=== PATIENT | female | born 1945 | race Caucasian/White ===

== ENCOUNTER 2018-05-30 16:56 | Emergency (ER) | payer MEDICARE, OTHER, SELFPAY ==
[2018-05-30] VITALS (21 sets, daily range): BP systolic 127–154; BP diastolic 64–119; PULSE 86–117; RESP 13–25; TEMP 36.5–37.1; O2SAT 94–98
--- NOTE | 2018-05-30 17:27 | W.ED.GENAD ---
Discharge Plan Disposition Patient Disposition: HOME Condition: Improving Discharge Details Chief Complaint: GenMedical Clinical Impression: Lower leg pain, Choreiform movements Primary Care Provider: Joan Vail ED Provider: Igor Leija Home Meds and New Rx's Prescriptions: No Action sulfurzyme 1.8 gram PO BID RF: 0 calcium/magnsium 2 cap PO BID Qty: 30 RF: 1 mo-1-tsu-epa-fish oil-vit D3 [[place]-3 + Vitamin D3] 1 EACH capsule 3,900 ea PO DAILY RF: 0 lysine [L-Lysine] 500 MG capsule 1 cap PO PRN PRNRF: 0 red yeast rice 600 MG capsule 600 mg PO BID RF: 0 peppermint spirit 30 ML spirit 2 drp PO PRN PRNRF: 0 Discharge Instructions Additional Instructions: 1. Drink plenty of fluids. 2. Continue all medications as prescribed. 3. Acetaminophen 1000mg every 4 hours (up to 5 time a day) and/or ibuprofen 600mg every 6 hours as needed for fever or pain. 4. Diphenhydramine 25-50 mg every 6 hours as needed. 5. Stop using topical oil for pain relief. Return to the Emergency Department (ED) if your condition worsens, does not improve as expected, or for ANY other concerns. Specifically, return if you have new or uncontrolled pain, worsening fever, difficulty breathing, vomiting, or are unable to drink fluids. Referrals: Joan Vail MD [Primary Care Provider] - Estefany James MD [ [facility] STAFF PHYSICIAN] - 1 day (Atypical left sided choreiform movements which have distinguished with diphenhydramine and analgesia. Negative head CT and metabolic work up. ) Medical Decision Making 73-year-old woman with a history of previous peripheral left ankle/leg pain who presents with accelerating lower extremity pain and persistent left upper and lower extremity choreiform movements. Pain preceded onset of movements. Patient had taken no new medications other than applying pine oil for pain relief. She is vague as to whether her choreiform movements started prior to or after application of this substance. Nonfocal exam except for persistent upper extremity and lower extremity movements which extinguished during my exam. Otherwise nonfocal neurological exam. Labs nondiagnostic including a negative TSH and sed rate. Lyme/tickborne illness panel pending. Noncontrast head CT also nondiagnostic. Clinically improved after receiving IV crystalloid, IV ketorolac, and IV diphenhydramine. Discharged with plan for continued OTC analgesia, diphenhydramine, and outpatient follow-up. Given usual and customary return instructions prior to discharge. Medical Records Medical records reviewed: Yes I reviewed the patient's medical records. Imaging Data Radiologic Study: Imaging: CT Scan (Noncontrast head CT) My impression: No acute hemorrhage or intracranial lesion. Images interpreted independently and contemporaneously by me Radiologist's impression: No evidence for acute transcortical infarct, acute intracranial hemorrhage, or mass effect Lab Data Lab results reviewed: Yes I reviewed the patient's lab results. Laboratory Tests Range/Units 05/30/18 05/30/18 05/30/18 17:20 17:20 18:50 WBC (4.4-10.8) k/cumm 8.33 RBC (4.00-5.20) m/cumm 4.46 Hgb (12.0-15.5) g/dL 14.1 Hct (36.0-46.0) % 40.4 MCV (80-95) fL 90.6 MCH (27.0-33.0) pg 31.6 MCHC (32.0-36.0) g/dL 34.9 RDW (11.7-14.6) % 11.7 Plt Count (130-400) x1000/uL 257 MPV (8.0-11.0) fL 9.4 Immature Gran % 0.2 Neutrophils % 60.1 Lymphocytes % 27.5 Monocytes % 9.5 Eosinophils % 2.3 Basophils % 0.4 Absolute Neutrophils (1.2-6.7) k/cumm 5.01 Absolute Lymphocytes (1.2-3.4) k/cumm 2.29 Absolute Monocytes (0.11-0.7) k/cumm 0.79 H Absolute Eosinophils (0.0-0.7) k/cumm 0.19 Absolute Basophils (0.0-0.2) k/cumm 0.03 ESR (0-30) MM/HR Sodium (136-145) mmol/L 139 Potassium (3.5-5.1) mmol/L 3.8 Chloride (98-107) mmol/L 104 Carbon Dioxide (21.0-32.0) mmol/L 25.0 Anion Gap (3-11) mmol/L 10.0 BUN (7-18) mg/dL 14 Creatinine (0.55-1.02) mg/dL 0.73 Estimated GFR/1.73 m2 (mL/min/1.73m2) >= 60.00 Glucose (70-100) mg/dL 128 H Calcium (8.5-10.1) mg/dL 9.2 Magnesium (1.8-2.4) mg/dL 1.9 Total Bilirubin (0.2-1.0) mg/dL 0.4 AST (15-37) U/L 17 ALT (12-78) U/L 31 Alkaline Phosphatase (46-116) U/L 77 Total Protein (6.4-8.2) g/dL 7.5 Albumin (3.4-5.0) g/dL 3.8 TSH (0.358-3.74) uIU/mL 0.88 Range/Units 05/30/18 18:50 WBC (4.4-10.8) k/cumm RBC (4.00-5.20) m/cumm Hgb (12.0-15.5) g/dL Hct (36.0-46.0) % MCV (80-95) fL MCH (27.0-33.0) pg MCHC (32.0-36.0) g/dL RDW (11.7-14.6) % Plt Count (130-400) x1000/uL MPV (8.0-11.0) fL Immature Gran % Neutrophils % Lymphocytes % Monocytes % Eosinophils % Basophils % Absolute Neutrophils (1.2-6.7) k/cumm Absolute Lymphocytes (1.2-3.4) k/cumm Absolute Monocytes (0.11-0.7) k/cumm Absolute Eosinophils (0.0-0.7) k/cumm Absolute Basophils (0.0-0.2) k/cumm ESR (0-30) MM/HR 2 Sodium (136-145) mmol/L Potassium (3.5-5.1) mmol/L Chloride (98-107) mmol/L Carbon Dioxide (21.0-32.0) mmol/L Anion Gap (3-11) mmol/L BUN (7-18) mg/dL Creatinine (0.55-1.02) mg/dL Estimated GFR/1.73 m2 (mL/min/1.73m2) Glucose (70-100) mg/dL Calcium (8.5-10.1) mg/dL Magnesium (1.8-2.4) mg/dL Total Bilirubin (0.2-1.0) mg/dL AST (15-37) U/L ALT (12-78) U/L Alkaline Phosphatase (46-116) U/L Total Protein (6.4-8.2) g/dL Albumin (3.4-5.0) g/dL TSH (0.358-3.74) uIU/mL HPI General Mode of arrival: ambulatory. Date/Time Provider Initiated Documentation: 05/30/18 17:24. Limitations to Documentation: no limitations. Information obtained by: patient and family. HPI Narrative: 73-year-old woman with an unremarkable past medical history who presents with persistent choreiform movements of her left upper and lower extremity. She has a previous history of left lower extremity pain which has been previously evaluated and clinically improved with ketorolac. She notes worsening pain today. However associated with increased pain has been associated inability to control movements in her upper and lower left extremety. She denies a history of previous similar symptoms. She describes brief intervals when her extremities are not moving spontaneously but then having recurrence of inability to control activity. She denies headache, focal extremity weakness, recent trauma, and is not on a blood thinner. Related Data Home Medications Medication Instructions Recorded Confirmed lysine [l-Lysine] 1 cap PO PRN PRN 07/07/12 07/10/16 red yeast rice 600 mg PO BID 06/02/14 07/10/16 Sulfurzyme 1.8 gram PO BID 07/06/14 07/10/16 peppermint spirit 2 drp PO PRN PRN 09/13/14 07/10/16 Calcium/Magnsium 2 cap PO BID #30 tab 08/30/15 07/10/16 xo-1-bqd-epa-fish oil-vit D3 3,900 ea PO DAILY 08/20/17 [[place]-3 + Vitamin D3 Softgel] Allergies Allergy/AdvReac Type Severity Reaction Status Date / Time Penicillins Allergy Severe swelling Unverified 05/30/18 17:26 atorvastatin calcium AdvReac Intermediate Muscle Unverified 05/30/18 17:26 [From Lipitor] cramps General Stated Complaint: GenMedical MARA: 3 Review of Systems Review of Systems All systems reviewed & are unremarkable except as noted in HPI and below Constitutional Denies chills, Denies fever(s) and Denies weakness Eyes Denies blurry vision ENT Denies facial pain, Denies sore throat and Denies throat swelling Cardiovascular Denies chest pain, Denies palpitations and Denies dyspnea Respiratory Denies cough and Denies dyspnea Gastrointestinal Denies abdominal pain and Denies melena Genitourinary Denies dysuria and Denies flank pain Musculoskeletal Denies back pain Comments: Left distal lower extremity pain at the ankle Integumentary/Breasts Denies rash and Denies wounds Neurologic Denies weakness Comments: Upper and lower extremity choreiform movements which have persisted since this Endocrine Denies palpitations Hematologic/Lymphatic Denies as per HPI and Denies easy bleeding Allergic/Immunologic Denies throat swelling PFSH Surgical History Abdominal hysterectomy (08/08/08) Hernia repair Ligation of fallopian tube Pacemaker (10/11/12) Tonsillectomy and adenoidectomy Family History Mother Essential hypertension Heart disease Stroke Father Personal history of malignant neoplasm Smoker Brother Hyperlipidemia Myocardial infarction Grandfather Heart disease Grandfather No problems noted. Grandmother No problems noted. Grandmother Personal history of malignant neoplasm Son No problems noted. Son No problems noted. Son Heart disease Daughter No problems noted. Social History Smoking/Tobacco Use Status: Never Exam Narrative Exam Narrative: Nursing note and vital signs have been reviewed and noted. GENERAL: alert, active, no acute distress, well -hydrated, well-nourished HEENT: atraumatic/normocephalic, PERRLA, EOMI, conjunctiva clear, external ears/canals normal, nasal mucosa normal NECK: supple, full range of motion, no mass, normal lymphadenopathy, no thyromegaly CARDIOVASCULAR: RRR, no murmurs, nl pulses, no edema PULMONARY: nl effort, no audible wheezing or stridor, nl breath sounds with no focal deficit. no chest wall tenderness ABDOMEN: soft, non-tender, non-distended, no mass, no organomegaly EXTREMITY: normal muscle tone, all joints with FROM, no deformity; mild tenderness at medial ankle/distal leg with no associated swelling, ecchymosis, or erythema NUERO: gross motor exam normal, normal stance and gait, persistent atypical left upper extremity lower extremity choreiform movements which extinguish; negative Rhomberg, PSYCH: alert and oriented, Course Vital Signs Temperature 98.8 F 05/30/18 17:01 Pulse 106 H 05/30/18 17:01 Respiratory Rate 16 05/30/18 17:01 Blood Pressure 154/84 H 05/30/18 17:01 Pulse Oximetry 98 05/30/18 17:01 Temperature 98.8 F 05/30/18 17:01 Temperature Source Temporal Artery Scan 05/30/18 17:01 Pulse 106 H 05/30/18 17:01 Respiratory Rate 16 05/30/18 17:01 Respiratory Effort 05/30/18 17:05 Blood Pressure 154/84 H 05/30/18 17:01 Blood Pressure Position Sitting 05/30/18 17:01 Pulse Oximetry 98 05/30/18 17:01 Oxygen Delivery Method Room Air 05/30/18 17:01 Oxygen Flow Rate 0 05/30/18 17:01
--- NOTE | 2018-05-30 17:30 | ED.GENADUL_ITS ---
Discharge Plan Disposition Patient Disposition: HOME Condition: Improving Discharge Details Chief Complaint: GenMedical Clinical Impression: Lower leg pain, Choreiform movements Primary Care Provider: Joan Vail ED Provider: Igor Leija Home Meds and New Rx's Prescriptions: No Action sulfurzyme 1.8 gram PO BID RF: 0 calcium/magnsium 2 cap PO BID Qty: 30 RF: 1 mf-2-wim-epa-fish oil-vit D3 [[place]-3 + Vitamin D3] 1 EACH capsule 3,900 ea PO DAILY RF: 0 lysine [L-Lysine] 500 MG capsule 1 cap PO PRN PRNRF: 0 red yeast rice 600 MG capsule 600 mg PO BID RF: 0 peppermint spirit 30 ML spirit 2 drp PO PRN PRNRF: 0 Discharge Instructions Additional Instructions: 1. Drink plenty of fluids. 2. Continue all medications as prescribed. 3. Acetaminophen 1000mg every 4 hours (up to 5 time a day) and/or ibuprofen 600mg every 6 hours as needed for fever or pain. 4. Diphenhydramine 25-50 mg every 6 hours as needed. 5. Stop using topical oil for pain relief. Return to the Emergency Department (ED) if your condition worsens, does not improve as expected, or for ANY other concerns. Specifically, return if you have new or uncontrolled pain, worsening fever, difficulty breathing, vomiting, or are unable to drink fluids. Referrals: Joan Vail MD [Primary Care Provider] - Estefany James MD [ [facility] STAFF PHYSICIAN] - 1 day (Atypical left sided choreiform movements which have distinguished with diphenhydramine and analgesia. Negative head CT and metabolic work up. ) Medical Decision Making 73-year-old woman with a history of previous peripheral left ankle/leg pain who presents with accelerating lower extremity pain and persistent left upper and lower extremity choreiform movements. Pain preceded onset of movements. Patient had taken no new medications other than applying pine oil for pain relief. She is vague as to whether her choreiform movements started prior to or after application of this substance. Nonfocal exam except for persistent upper extremity and lower extremity movements which extinguished during my exam. Otherwise nonfocal neurological exam. Labs nondiagnostic including a negative TSH and sed rate. Lyme/tickborne illness panel pending. Noncontrast head CT also nondiagnostic. Clinically improved after receiving IV crystalloid, IV ketorolac, and IV diphenhydramine. Discharged with plan for continued OTC analgesia, diphenhydramine, and outpatient follow-up. Given usual and customary return instructions prior to discharge. Medical Records Medical records reviewed: Yes I reviewed the patient's medical records. Imaging Data Radiologic Study: Imaging: CT Scan (Noncontrast head CT) My impression: No acute hemorrhage or intracranial lesion. Images interpreted independently and contemporaneously by me Radiologist's impression: No evidence for acute transcortical infarct, acute intracranial hemorrhage, or mass effect Lab Data Lab results reviewed: Yes I reviewed the patient's lab results. Laboratory Tests Range/Units 05/30/18 05/30/18 05/30/18 17:20 17:20 18:50 WBC (4.4-10.8) k/cumm 8.33 RBC (4.00-5.20) m/cumm 4.46 Hgb (12.0-15.5) g/dL 14.1 Hct (36.0-46.0) % 40.4 MCV (80-95) fL 90.6 MCH (27.0-33.0) pg 31.6 MCHC (32.0-36.0) g/dL 34.9 RDW (11.7-14.6) % 11.7 Plt Count (130-400) x1000/uL 257 MPV (8.0-11.0) fL 9.4 Immature Gran % 0.2 Neutrophils % 60.1 Lymphocytes % 27.5 Monocytes % 9.5 Eosinophils % 2.3 Basophils % 0.4 Absolute Neutrophils (1.2-6.7) k/cumm 5.01 Absolute Lymphocytes (1.2-3.4) k/cumm 2.29 Absolute Monocytes (0.11-0.7) k/cumm 0.79 H Absolute Eosinophils (0.0-0.7) k/cumm 0.19 Absolute Basophils (0.0-0.2) k/cumm 0.03 ESR (0-30) MM/HR Sodium (136-145) mmol/L 139 Potassium (3.5-5.1) mmol/L 3.8 Chloride (98-107) mmol/L 104 Carbon Dioxide (21.0-32.0) mmol/L 25.0 Anion Gap (3-11) mmol/L 10.0 BUN (7-18) mg/dL 14 Creatinine (0.55-1.02) mg/dL 0.73 Estimated GFR/1.73 m2 (mL/min/1.73m2) >= 60.00 Glucose (70-100) mg/dL 128 H Calcium (8.5-10.1) mg/dL 9.2 Magnesium (1.8-2.4) mg/dL 1.9 Total Bilirubin (0.2-1.0) mg/dL 0.4 AST (15-37) U/L 17 ALT (12-78) U/L 31 Alkaline Phosphatase (46-116) U/L 77 Total Protein (6.4-8.2) g/dL 7.5 Albumin (3.4-5.0) g/dL 3.8 TSH (0.358-3.74) uIU/mL 0.88 Range/Units 05/30/18 18:50 WBC (4.4-10.8) k/cumm RBC (4.00-5.20) m/cumm Hgb (12.0-15.5) g/dL Hct (36.0-46.0) % MCV (80-95) fL MCH (27.0-33.0) pg MCHC (32.0-36.0) g/dL RDW (11.7-14.6) % Plt Count (130-400) x1000/uL MPV (8.0-11.0) fL Immature Gran % Neutrophils % Lymphocytes % Monocytes % Eosinophils % Basophils % Absolute Neutrophils (1.2-6.7) k/cumm Absolute Lymphocytes (1.2-3.4) k/cumm Absolute Monocytes (0.11-0.7) k/cumm Absolute Eosinophils (0.0-0.7) k/cumm Absolute Basophils (0.0-0.2) k/cumm ESR (0-30) MM/HR 2 Sodium (136-145) mmol/L Potassium (3.5-5.1) mmol/L Chloride (98-107) mmol/L Carbon Dioxide (21.0-32.0) mmol/L Anion Gap (3-11) mmol/L BUN (7-18) mg/dL Creatinine (0.55-1.02) mg/dL Estimated GFR/1.73 m2 (mL/min/1.73m2) Glucose (70-100) mg/dL Calcium (8.5-10.1) mg/dL Magnesium (1.8-2.4) mg/dL Total Bilirubin (0.2-1.0) mg/dL AST (15-37) U/L ALT (12-78) U/L Alkaline Phosphatase (46-116) U/L Total Protein (6.4-8.2) g/dL Albumin (3.4-5.0) g/dL TSH (0.358-3.74) uIU/mL HPI General Mode of arrival: ambulatory . Date/Time Provider Initiated Documentation: 05/30/18 17:24 . Limitations to Documentation: no limitations . Information obtained by: patient and family . HPI Narrative: 73-year-old woman with an unremarkable past medical history who presents with persistent choreiform movements of her left upper and lower extremity. She has a previous history of left lower extremity pain which has been previously evaluated and clinically improved with ketorolac. She notes worsening pain today. However associated with increased pain has been associated inability to control movements in her upper and lower left extremety. She denies a history of previous similar symptoms. She describes brief intervals when her extremities are not moving spontaneously but then having recurrence of inability to control activity. She denies headache, focal extremity weakness, recent trauma, and is not on a blood thinner. Related Data Home Medications Medication Instructions Recorded Confirmed lysine [l-Lysine] 1 cap PO PRN PRN 07/07/12 07/10/16 red yeast rice 600 mg PO BID 06/02/14 07/10/16 Sulfurzyme 1.8 gram PO BID 07/06/14 07/10/16 peppermint spirit 2 drp PO PRN PRN 09/13/14 07/10/16 Calcium/Magnsium 2 cap PO BID #30 tab 08/30/15 07/10/16 gv-1-tpz-epa-fish oil-vit D3 3,900 ea PO DAILY 08/20/17 [[place]-3 + Vitamin D3 Softgel] Allergies Allergy/AdvReac Type Severity Reaction Status Date / Time Penicillins Allergy Severe swelling Unverified 05/30/18 17:26 atorvastatin calcium AdvReac Intermediate Muscle Unverified 05/30/18 17:26 [From Lipitor] cramps General Stated Complaint: GenMedical MARA: 3 Review of Systems Review of Systems All systems reviewed & are unremarkable except as noted in HPI and below Constitutional Denies chills, Denies fever(s) and Denies weakness Eyes Denies blurry vision ENT Denies facial pain, Denies sore throat and Denies throat swelling Cardiovascular Denies chest pain, Denies palpitations and Denies dyspnea Respiratory Denies cough and Denies dyspnea Gastrointestinal Denies abdominal pain and Denies melena Genitourinary Denies dysuria and Denies flank pain Musculoskeletal Denies back pain Comments: Left distal lower extremity pain at the ankle Integumentary/Breasts Denies rash and Denies wounds Neurologic Denies weakness Comments: Upper and lower extremity choreiform movements which have persisted since this Endocrine Denies palpitations Hematologic/Lymphatic Denies as per HPI and Denies easy bleeding Allergic/Immunologic Denies throat swelling PFSH Surgical History Abdominal hysterectomy (08/08/08) Hernia repair Ligation of fallopian tube Pacemaker (10/11/12) Tonsillectomy and adenoidectomy Family History Mother Essential hypertension Heart disease Stroke Father Personal history of malignant neoplasm Smoker Brother Hyperlipidemia Myocardial infarction Grandfather Heart disease Grandfather No problems noted. Grandmother No problems noted. Grandmother Personal history of malignant neoplasm Son No problems noted. Son No problems noted. Son Heart disease Daughter No problems noted. Social History Smoking/Tobacco Use Status: Never Exam Narrative Exam Narrative: Nursing note and vital signs have been reviewed and noted. GENERAL: alert, active, no acute distress, well -hydrated, well-nourished HEENT: atraumatic/normocephalic, PERRLA, EOMI, conjunctiva clear, external ears/canals normal, nasal mucosa normal NECK: supple, full range of motion, no mass, normal lymphadenopathy, no thyromegaly CARDIOVASCULAR: RRR, no murmurs, nl pulses, no edema PULMONARY: nl effort, no audible wheezing or stridor, nl breath sounds with no focal deficit. no chest wall tenderness ABDOMEN: soft, non-tender, non-distended, no mass, no organomegaly EXTREMITY: normal muscle tone, all joints with FROM, no deformity; mild tenderness at medial ankle/distal leg with no associated swelling, ecchymosis, or erythema NUERO: gross motor exam normal, normal stance and gait, persistent atypical left upper extremity lower extremity choreiform movements which extinguish; negative Rhomberg, PSYCH: alert and oriented, Course Vital Signs Temperature 98.8 F 05/30/18 17:01 Pulse 106 H 05/30/18 17:01 Respiratory Rate 16 05/30/18 17:01 Blood Pressure 154/84 H 05/30/18 17:01 Pulse Oximetry 98 05/30/18 17:01 Temperature 98.8 F 05/30/18 17:01 Temperature Source Temporal Artery Scan 05/30/18 17:01 Pulse 106 H 05/30/18 17:01 Respiratory Rate 16 05/30/18 17:01 Respiratory Effort 05/30/18 17:05 Blood Pressure 154/84 H 05/30/18 17:01 Blood Pressure Position Sitting 05/30/18 17:01 Pulse Oximetry 98 05/30/18 17:01 Oxygen Delivery Method Room Air 05/30/18 17:01 Oxygen Flow Rate 0 05/30/18 17:01
[2018-05-30 17:37] LABS: Abs Immature Grans 0.02 k/cumm (0.0-0.09); Absolute Basophil Count 0.03 k/cumm (0.0-0.2); Absolute Eosinophil Count 0.19 k/cumm (0.0-0.7); Absolute Lymphocyte Count 2.29 k/cumm (1.2-3.4); Absolute Monocyte Count 0.79 k/cumm (0.11-0.7); Absolute Neutrophil Count 5.01 k/cumm (1.2-6.7); Basophils % 0.4; Eosinophils % 2.3; HCT 40.4 % (36.0-46.0); HGB 14.1 g/dL (12.0-15.5); Immature Grans % 0.2; Lymphocytes % 27.5; Mean Corp. HGB Concentration 34.9 g/dL (32.0-36.0); Mean Corpuscular Hemoglobin 31.6 pg (27.0-33.0); Mean Corpuscular Volume 90.6 fL (80-95); Mean Platelet Volume 9.4 fL (8.0-11.0); Monocytes % 9.5; Neutrophils % 60.1; Platelet Count 257 x1000/uL (130-400); RBC 4.46 m/cumm (4.00-5.20); RBC Distribution Width 11.7 % (11.7-14.6); White Blood Cell Count 8.33 k/cumm (4.4-10.8)
[2018-05-30] MEDS: Ketorolac 15 MG/ML VIAL IVP (17:44)
[2018-05-30] MEDS: Normal Saline 1,000 ML 1000 ML IV (17:45)
[2018-05-30] MEDS: Normal Saline Flush 10 ML SYR IVP (17:45)
[2018-05-30] MEDS: diphenhydrAMINE 50 MG/ML VIAL 25 MG IVP (17:45)
[2018-05-30 17:50] LABS: ALT 31 U/L (12-78); AST 17 U/L (15-37); Albumin 3.8 g/dL (3.4-5.0); Alkaline Phosphatase 77 U/L (46-116); BUN 14 mg/dL (7-18); Bilirubin, Total 0.4 mg/dL (0.2-1.0); CREATININE 0.73 mg/dL (0.55-1.02); Calcium 9.2 mg/dL (8.5-10.1); Chloride 104 mmol/L (98-107); Glucose 128 mg/dL (70-100); Magnesium 1.9 mg/dL (1.8-2.4); Potassium 3.8 mmol/L (3.5-5.1); Sodium 139 mmol/L (136-145); Total Protein 7.5 g/dL (6.4-8.2)
--- NOTE | 2018-05-30 18:16 | DI.CT_ITS ---
SYMPTOM/DIAGNOSIS: LT SIDED WEAKNESS NONCONTRAST HEAD CT: There are no prior comparison exams. There is mild atrophy and patchy areas of decreased attenuation in the white matter, consistent with small vessel disease. No acute infarct, hemorrhage or mass is seen. There is no evidence of skull fracture. The sinuses and mastoid air cells appear clear. IMPRESSION: No acute abnormality.
[2018-05-30 19:19] LABS: TSH 0.88 uIU/mL (0.358-3.74)
--- NOTE | 2018-05-30 19:31 | DI.VRAD_ITS ---
EXAM: CT Head Without Contrast EXAM DATE/TIME: 05/30/2018 6:18 PM CLINICAL HISTORY: 73 years old, female; Signs and symptoms; Weakness, extremity; Left; Patient HX: Left sided weakness TECHNIQUE: Axial computed tomography images of the head/brain without contrast. All CT scans at this facility use at least one of these dose optimization techniques: automated exposure control; mA and/or kV adjustment per patient size (includes targeted exams where dose is matched to clinical indication); or iterative reconstruction. Coronal and sagittal reformatted images were created and reviewed. COMPARISON: No relevant prior studies available. FINDINGS: Brain: Age-related involutional changes and chronic microvascular ischemic disease. No evidence for acute transcortical infarct. No mass effect or midline shift. No extra-axial collection. No acute intracranial hemorrhage. Basal cisterns are patent. Ventricles: Normal. No ventriculomegaly. Bones/joints: Unremarkable. No acute fracture. Sinuses: Visualized sinuses are unremarkable. No acute sinusitis. Mastoid air cells: Visualized mastoid air cells are unremarkable. No mastoid effusion. Soft tissues: Unremarkable. IMPRESSION: No evidence for acute transcortical infarct, acute intracranial hemorrhage, or mass effect. Dictated and Authenticated by: Enrike Ortiz MD. Ordering:MAXWELL Costa MD
[2018-05-30 19:43] LABS: ESR 2 MM/HR (0-30)
--- NOTE | 2018-05-31 08:22 | CMPROGNOTE_ITS ---
Care Management Progress Note 05/31-Dr. Leija requested assistance with a neurology f/u as soon as possible for unilateral choreaform movements. Referral faxed to [facility] neurology this am.
[2018-06-01 11:43] LABS: Lyme Ab w Rflx to Lyme Confirm Negative
[2018-06-03 09:37] LABS: Anaplasma phagocytophilum Negative (Negative); B. miyamotoi PCR Negative (Negative); Babesia divergens/MO-1 Negative (Negative); Babesia duncani Negative (Negative); Babesia microti Negative (Negative); Ehrlichia chaffeensis Negative (Negative); Ehrlichia ewingii/canis Negative (Negative); Ehrlichia muris eauclairensis Negative (Negative)
== END 2018-05-30 20:15 | disposition home or self-care (01) ==
PROVIDERS: Emergency Provider Emergency Medicine; PCP Family Medicine
DX: M79.662 Pain in left lower leg (principal); M25.572 Pain in left ankle and joints of left foot; R25.8 Other abnormal involuntary movements
CPT/HCPCS: 36415; 80053; 85652; 96361; 96374; 96375; 99284; 70450; 83735; 84443; 85025; 86618; 87798; J1200; J1885

== ENCOUNTER 2019-05-25 07:00 | Outpatient (CLI) | payer MEDICARE, OTHER, SELFPAY ==
[2019-05-25 11:17] LABS: ALT 30 U/L (14-59); AST 22 U/L (15-37); Albumin 3.8 g/dL (3.4-5.0); Alkaline Phosphatase 83 U/L (46-116); Anion Gap 6.2 mmol/L (3-11); BUN 12 mg/dL (7-18); Bilirubin, Total 0.6 mg/dL (0.2-1.0); CO2 30.8 mmol/L (21.0-32.0); CREATININE 0.75 mg/dL (0.55-1.02); Calcium 9.5 mg/dL (8.5-10.1); Chloride 105 mmol/L (98-107); Glucose 108 mg/dL (74-106); Potassium 4.5 mmol/L (3.5-5.1); Sodium 142 mmol/L (136-145); TSH 0.88 uIU/mL (0.36-3.74); Total Protein 7.2 g/dL (6.4-8.2); Uric Acid 4.2 mg/dL (2.6-6.0)
[2019-05-25 11:53] LABS: Abs Immature Grans 0.01 k/cumm (0.0-0.09); Absolute Basophil Count 0.03 k/cumm (0.0-0.2); Absolute Eosinophil Count 0.21 k/cumm (0.0-0.7); Absolute Lymphocyte Count 1.86 k/cumm (1.2-3.4); Absolute Monocyte Count 0.56 k/cumm (0.11-0.7); Basophils % 0.5; Eosinophils % 3.2; HCT 41.3 % (36.0-46.0); Immature Grans % 0.2 %; Lymphocytes % 28.3; Mean Corp. HGB Concentration 33.9 g/dL (32.0-36.0); Mean Corpuscular Volume 91.4 fL (80-95); Mean Platelet Volume 9.5 fL (8.0-11.0); Monocytes % 8.5; Neutrophils % 59.3; Platelet Count 298 x1000/uL (130-400); RBC 4.52 m/cumm (4.00-5.20); White Blood Cell Count 6.57 k/cumm (4.4-10.8)
[2019-05-25 14:05] LABS: ESR 4 mm/hr (0-30)
== END 2019-05-25 07:20 ==
PROVIDERS: PCP Family Medicine; Visit Provider Family Medicine
DX: R53.83 Other fatigue (principal); R29.90 Unspecified symptoms and signs involving the nervous system; M25.50 Pain in unspecified joint
CPT/HCPCS: 36415; 80053; 85652; 84443; 84550; 85025

== ENCOUNTER 2019-11-03 00:20 | Outpatient (CLI) | payer MEDICARE, OTHER, SELFPAY ==
--- NOTE | 2019-11-03 08:00 | DI.DEXA_ITS ---
EXAM: XR DEXA BONE DENSITY W/WO SERGEY CLINICAL HISTORY: osteopenia on last Dexa 2016/recent fracture, OSTEOPENIA, M85.88 TECHNIQUE: BTR C densitometer. COMPARISON: CR THORACIC SPINE from 08/11/2016 DX DEXA BONE DENSITY WITH SERGEY from 08/26/2016 and 05/18/2003 FINDINGS: The lateral view of the thoracic and lumbar spine shows midthoracic compression fractures which wer e seen on previous thoracic spine plain films. Degenerative disc changes are also noted. The bone m ineral density measurements of the lumbar spine correspond to a total T-score of -1.7, in the osteope jocelyne range. There has been interval increase in the bone density at L4 which appears to be secondary to increased sclerosis and endplate osteophytes. The total bone mineral density shows a 3.9 percent decrease when compared with 2016 and 8.2 percent decrease when compared with 2003. The bone mineral density measurements of the left hip correspond to a total T-score of -1.9 and a femoral neck T-score of -1.4, in the osteopenic range. This represents a 4 percent decrease when compared with 2016 and a 17.1 percent decrease when compared with 2003. The forearm was not analyzed due to a history of wr ist fracture. IMPRESSION: Osteopenia of the lumbar spine and left hip with decrease when compared with previous exams.
== END 2019-11-03 00:40 ==
PROVIDERS: PCP Family Medicine; Visit Provider Family Medicine
DX: M85.88 Other specified disorders of bone density and structure, other site (principal)
CPT/HCPCS: 77080

== ENCOUNTER 2020-01-24 09:56 | Outpatient (CLI) | payer MEDICARE, OTHER, SELFPAY ==
[2020-01-26 19:35] LABS: Patient Race White; SARS-CoV-2 RNA Undetected (Undetected); SARS-CoV-2 Specimen Source Nasopharynx
== END 2020-01-24 10:16 ==
PROVIDERS: PCP Family Medicine; Visit Provider Nurse Practitioner Family
DX: Z11.59 Encounter for screening for other viral diseases (principal)
CPT/HCPCS: U0003

== ENCOUNTER 2020-06-14 02:55 | Outpatient (CLI) | payer OTHER, SELFPAY ==
[2020-06-14 09:09] LABS: Abs Immature Grans 0.01 10^3/uL (0.0-0.06); Absolute Basophil Count 0.05 10^3/uL (0.0-0.2); Absolute Eosinophil Count 0.18 10^3/uL (0.0-0.7); Absolute Lymphocyte Count 1.73 10^3/uL (1.2-3.4); Absolute Monocyte Count 0.56 10^3/uL (0.1-0.8); Absolute Neutrophil Count 3.86 10^3/uL (1.2-6.7); Basophils % 0.8; Eosinophils % 2.8; HCT 41.6 % (36.0-46.0); HGB 14.1 g/dL (11.2-15.7); Immature Grans % 0.2; Lymphocytes % 27.1; MCH 31.4 pg (27.0-33.0); MCHC 33.9 % (32.0-36.0); MCV 92.7 fL (80-95); Monocytes % 8.8; Neutrophils % 60.3; Nucleated RBC 0 %; Platelet Count 262 10^3/uL (130-400); RBC 4.49 10^6/uL (3.93-5.22); RDW 11.6 % (11.7-14.6); RDW-SD 39.4 fL; WBC 6.39 10^3/uL (4.4-10.8)
[2020-06-14 10:05] LABS: ALT 37 U/L (14-59); AST 25 U/L (15-37); Albumin 3.7 g/dL (3.4-5.0); Alkaline Phosphatase 79 U/L (46-116); Anion Gap 8.4 mmol/L (3-11); BUN 13 mg/dL (7-18); Bilirubin, Total 0.6 mg/dL (0.2-1.0); CO2 27.6 mmol/L (21.0-32.0); CREATININE 0.8 mg/dL (0.55-1.02); Calcium 9.9 mg/dL (8.5-10.1); Chloride 106 mmol/L (98-107); Glucose 102 mg/dL (74-106); Potassium 4.1 mmol/L (3.5-5.1); Sodium 142 mmol/L (136-145); TSH 1.07 uIU/mL (0.36-3.74); Total Protein 7.4 g/dL (6.4-8.2)
[2020-06-14 12:45] LABS: Vitamin D 25 Total 37.2 ng/ml (30-100)
[2020-06-14 14:57] LABS: ESR < 1 mm/hr (<or=30)
== END 2020-06-14 02:56 | disposition home or self-care (01) ==
LOC: LBO 02:55
PROVIDERS: PCP Family Medicine; Visit Provider Family Medicine
DX: R53.83 Other fatigue (principal); E55.9 Vitamin D deficiency, unspecified; R63.4 Abnormal weight loss; M25.59 Pain in other specified joint
CPT/HCPCS: 36415; 80053; 82306; 85652; 84443; 85025

== ENCOUNTER → 2020-07-26 09:42 | Outpatient (BNVA) | payer OTHER, SELFPAY | PROVIDERS: PCP Family Medicine; Referring Provider Family Medicine; Visit Provider Psychiatry & Neurology Neurology | DX: I69.398 Other sequelae of cerebral infarction (principal); R25.1 Tremor, unspecified; R20.2 Paresthesia of skin; F41.8 Other specified anxiety disorders | CPT/HCPCS: 99213 ==

== ENCOUNTER → 2021-08-27 08:05 | Outpatient (BNVA) | payer MEDICARE, OTHER, SELFPAY | PROVIDERS: PCP Family Medicine; Referring Provider Family Medicine; Visit Provider Psychiatry & Neurology Neurology | DX: I10 Essential (primary) hypertension (principal); Z86.73 Personal history of transient ischemic attack (TIA), and cerebral infarction without residual deficits; R25.1 Tremor, unspecified; M25.511 Pain in right shoulder; R20.2 Paresthesia of skin | CPT/HCPCS: 95886; 95912; 99214 ==

== ENCOUNTER → 2021-09-09 02:25 | Outpatient (CLI) | payer MEDICARE, OTHER, SELFPAY ==
--- NOTE | 2021-09-09 06:45 | DI.CT_ITS ---
Exam(s) CT CERVICAL SPINE WO EXAM: CT CERVICAL SPINE WO CLINICAL HISTORY: concern for myelopathy,paresthesia both hands, r20.2. TECHNIQUE: Imaging Protocol: Axial computed tomography images with coronal and sagittal reformatted images were created and reviewed COMPARISON: No exams were available for comparison FINDINGS: Bones: No fracture or dislocations are seen. The alignment of the cervical spine is normal including the craniocervical junction and cervicothoracic junction. There is disc space narrowing at C6-C7. En dplate osteophytes are seen at multiple levels in the cervical spine but particularly at C5-6 and C6- C7. No suspicious lytic or sclerotic lesions are seen. Facet arthropathy is seen throughout the cer vical spine but particularly at C3-4, C4-5 and C5-C6. C2-3: No significant central spinal canal or neural foraminal stenosis. C3-4: Hypertrophic changes of the right uncovertebral joint causes mild right neural foraminal narrow ing. No significant central spinal canal or left neural foraminal stenosis. C4-5: There is no significant central spinal canal or neural foraminal stenosis. C5-6: No significant central spinal canal or neural foraminal stenosis. C6-7: No significant central spinal canal or neural foraminal stenosis. C7-T1: No significant central spinal canal or neural foraminal stenosis. Soft Tissues: The soft tissues of the neck are unremarkable. No large disk herniations are identified . The lung apices are clear. IMPRESSION: Degenerative changes in the cervical spine which do result in mild narrowing of the right neural fora men at C3-C4. RADIATION DOSE DELIVERED: 392.84mGy.cm Total DLP 392.84mGy.cm Total DLP DATA REPOSITORY: All CT scans at this facility are submitted to the National Radiology Data Registry (NRDR) Dose Index Registry (DIR) with the [employer] ([employer]). RADIATION OPTIMIZATION: All CT scans at this facility use at least one of these dose optimization te chniques: automated exposure control; mA and/or kV adjustment per patient size (includes targeted exa ms where dose is matched to clinical indication); or iterative reconstruction.
== END ==
PROVIDERS: PCP Family Medicine; Visit Provider Psychiatry & Neurology Neurology
DX: R20.2 Paresthesia of skin (principal); M50.323 Other cervical disc degeneration at C6-C7 level; M47.812 Spondylosis without myelopathy or radiculopathy, cervical region
CPT/HCPCS: 72125

== ENCOUNTER 2021-09-10 10:06 | Outpatient (CLI) | payer MEDICARE, OTHER, SELFPAY ==
--- NOTE | 2021-09-10 09:00 | DI.RAD_ITS ---
Exam(s) XR SHOULDER RT COMPLETE 2+V EXAM: XR SHOULDER RT COMPLETE 2+V CLINICAL HISTORY: right shoulder pain. TECHNIQUE: 2D digital imaging was performed. COMPARISON: No exams were available for comparison FINDINGS: 3 views There is no evidence of fracture nor dislocation. There is an element of upward subluxation of the h umeral head in the glenoid fossa which may be associated with rotator cuff pathology. Also small bon y excrescence seen off the upper aspect of the lateral 3rd of the humeral head. Mild degenerative ch anges in the glenohumeral and AC joints noted. Bone density is age-appropriate. No osseous lesions IMPRESSION: DATA REPOSITORY: RADIATION DOSE DELIVERED:
== END 2021-09-10 10:07 | disposition home or self-care (01) ==
LOC: DIORS 10:07
PROVIDERS: PCP Family Medicine; Referring Provider Family Medicine; Visit Provider Physician Assistant
DX: M12.811 Other specific arthropathies, not elsewhere classified, right shoulder; M75.21 Bicipital tendinitis, right shoulder; M75.51 Bursitis of right shoulder
CPT/HCPCS: 99214; 73030

== ENCOUNTER → 2021-10-08 09:48 | Outpatient (BNVA) | payer MEDICARE, OTHER, SELFPAY | PROVIDERS: PCP Family Medicine; Referring Provider Family Medicine; Visit Provider Psychiatry & Neurology Neurology | DX: I69.398 Other sequelae of cerebral infarction (principal); R53.83 Other fatigue; G56.01 Carpal tunnel syndrome, right upper limb; G56.22 Lesion of ulnar nerve, left upper limb; G56.21 Lesion of ulnar nerve, right upper limb | CPT/HCPCS: 99214 ==

== ENCOUNTER → 2021-11-18 12:53 | Outpatient (BNVA) | payer MEDICARE, OTHER, SELFPAY | PROVIDERS: PCP Family Medicine; Referring Provider Family Medicine; Visit Provider Student in an Organized Health Care Education/Training Program | DX: G56.03 Carpal tunnel syndrome, bilateral upper limbs (principal); M12.811 Other specific arthropathies, not elsewhere classified, right shoulder | CPT/HCPCS: 99213 ==

== ENCOUNTER → 2021-12-04 09:24 | Outpatient (BNVA) | payer MEDICARE, OTHER, SELFPAY | PROVIDERS: PCP Family Medicine; Referring Provider Family Medicine; Visit Provider Student in an Organized Health Care Education/Training Program | DX: M12.811 Other specific arthropathies, not elsewhere classified, right shoulder (principal); M75.21 Bicipital tendinitis, right shoulder; M75.51 Bursitis of right shoulder | CPT/HCPCS: 20610; 99214; J1030 ==

== ENCOUNTER 2021-12-18 02:23 | Outpatient (CLI) | payer MEDICARE, SELFPAY ==
[2021-12-18 09:01] LABS: Anion Gap 7.7 mmol/L (3-11); BUN 11 mg/dL (7-18); CO2 29.3 mmol/L (21.0-32.0); CREATININE 0.7 mg/dL (0.55-1.02); Calcium 9.2 mg/dL (8.5-10.1); Calculated LDL 142 mg/dL (<100); Chloride 106 mmol/L (98-107); Cholesterol 237 mg/dL (<200); Glucose 110 mg/dL (74-106); HDL Cholesterol 80 mg/dL (40-60); Potassium 4.5 mmol/L (3.5-5.1); Sodium 143 mmol/L (136-145); Triglyceride 75 mg/dL (<150)
== END 2021-12-18 02:24 | disposition home or self-care (01) ==
LOC: LBO 02:23
PROVIDERS: PCP Family Medicine; Visit Provider Family Medicine
DX: E78.5 Hyperlipidemia, unspecified (principal); I10 Essential (primary) hypertension; I63.89 Other cerebral infarction
CPT/HCPCS: 36415; 80048; 80061

== ENCOUNTER 2022-01-22 06:00 | Day surgery (SDC) | payer MEDICARE, OTHER, SELFPAY ==
[2022-01-22 06:20] VITALS: BP 118/74; PULSE 75; RESP 16; TEMP 36.3; O2SAT 96
[2022-01-22] MEDS: Lactated Ringers 1,000 ML 80 ML IV (06:55)
--- NOTE | 2022-01-22 06:56 | W.ANESPRE ---
General Info Date of Service Date Performed: 01/22/22 Height: 5 ft 4 in Weight: 64 kg Body Mass Index (BMI): 24.2 Surgical Procedure: Operation Date: 01/22/22 07:40 Proposed Procedure Side Surgeon p Wrist ECTR Left Bryant Mendieta MD Meds Allergies and Home Medications Allergies Allergy/AdvReac Type Severity Reaction Status Date / Time Penicillins Allergy Severe swelling Verified 01/22/22 06:36 nickel Allergy Verified 01/22/22 06:36 atorvastatin calcium AdvReac Intermediate Muscle Verified 01/22/22 06:36 [From Lipitor] cramps meloxicam AdvReac stomach Verified 01/22/22 06:36 cramps/diarrhea Home Medication Medication Instructions Recorded lysine 500 mg capsule (L-Lysine) 1 cap PO PRN PRN 07/07/12 Sulfurzyme 1.8 gm PO BID 07/06/14 peppermint spirit 2 drp PO PRN PRN 09/13/14 Calcium/Magnsium 2 cap PO BID #30 tabs 08/30/15 omega-3 650 mg-dha 400 mg-epa 200 3,900 ea PO DAILY 08/20/17 mg-fish oil-vit D3 300 unit capsule ([place]-3 Plus Vitamin D3) aspirin 81 mg tablet,delayed 81 mg PO DAILY #90 tabs 06/01/18 release (Adult Low Dose Aspirin) vitamin B complex 1 tab PO DAILY 05/25/19 cholecalciferol (vitamin D3) 25 25 mcg PO DAILY 06/06/20 mcg (1,000 unit) capsule acetaminophen 500 mg tablet 500 mg PO Q6H PRN pain #60 tabs 01/22/22 ibuprofen 600 mg tablet 600 mg PO TID PRN pain #60 tabs 01/22/22 Current Visit Medications: Current Medications Generic Name Dose Route Start Last Admin Trade Name Freq PRN Reason Stop Dose Admin Ringer's Solution 1,000 mls @ 80 mls/hr 01/22/22 06:00 IV 02/20/22 23:59 INFUSION CARMEN Clindamycin Phosphate/Dextrose 900 mg in 50 mls @ 50 mls/hr 01/22/22 06:00 Cleocin In D5w IVPB 01/22/22 16:00 PREOP CARMEN IV Miscellaneous Supplies 1 each 01/22/22 06:00 Iv Access IV 02/20/22 23:59 DIRECTED CARMEN Sodium Chloride 0 ml 01/22/22 06:00 Normal Saline Flush 10 Ml Syr IV 02/20/22 23:59 PRN PRN Sodium Chloride 0 ml 01/22/22 06:00 Normal Saline 10 Ml Vial IJ 02/20/22 23:59 DIRECTED PRN Sterile Water 0 ml 01/22/22 06:00 Water,Injection,Sterile 10 Ml Vial IJ 02/20/22 23:59 DIRECTED PRN PFSH Active Problems Active Problems: Problem Status Onset Code Sensorineural hearing loss (SNHL) of both ears H90.3 Bursitis of right shoulder M75.51 Biceps tendinitis on right M75.21 Rotator cuff arthropathy of right shoulder M12.811 Right shoulder pain M25.511 Paresthesia of both hands R20.2 Heart murmur R01.1 Essential hypertension I10 Hyperlipidemia E78.5 Status post repair of paraesophageal diaphragmatic hernia 06/17/16 Z98.890, Z87.19 Pacemaker Z95.0 MVP (mitral valve prolapse) I34.1 IBS (irritable bowel syndrome) K58.9 GERD (gastroesophageal reflux disease) K21.9 Tremor R25.1 Left hand paresthesia R20.2 Anxiety with depression F41.8 Cerebrovascular accident (CVA) I63.9 Medical History Medical History Comments:: Reports mother is very sensative to medications Surgical History Surgical History Hernia repair 05/2016 History of tonsillectomy and adenoidectomy History of tubal ligation Hx of hysterectomy Pacemaker (10/11/12) Tobacco Smoking/Tobacco Use Status: Never Passive smoking exposure: Yes Alcohol Alcohol Intake: current Alcohol intake frequency: a few times a month Alcohol type: wine Substance Use Substance use: Never Substance use type: does not use Vital Signs and Lab Results Vital Signs Most Recent Vital Signs in EMR: Most Recent Vital Signs Temp Pulse Resp BP Pulse Ox 36.3 C L 75 16 118/74 96 01/22/22 06:20 01/22/22 06:20 01/22/22 06:20 01/22/22 06:20 01/22/22 06:20 Lab Results Blood Type / Crossmatch: No Data to Display Complete Blood Count: No Data to Display Complete Metabolic Panel: No Data to Display Liver Function Panel: No Data to Display Coagulation Panel: No Data to Display Cardiac Panel: No Data to Display Arterial Blood Gas: No Data to Display Venous Blood Gas: No Data to Display Pancreas Panel: No Data to Display Thyroid Panel: No Data to Display Infectious Disease: No Data to Display Blood Cultures: No Data to Display Toxicology Panel: No Data to Display Imaging and Studies Imaging and Studies Study information below may be from another EMR and interpreted by another provider. Please see original notes in EMR for more complete details. Stress Test Summary: IMPRESSION/RECOMMENDATIONS: Functional capacity average. Negative ischemia. Chronotropic incompetency is demonstrated on this study, 2:1 AV block persists with exercise. 07/07/12 Pulmonary Function Summary: INTERPRETATION: SPIROMETRY: Spirometry shows normal neuromuscular function testing, with normal MVV, MIP, and MEP maneuvers. IMPRESSION: Normal neuromuscular function testing for respiratory muscles. Clinical correlation recommended. 08/25/12 Anesthesia Assessment and Plan Anesthesia History Personal History: PONV Family History: No Family History of Anesthesia Complications and Other Exercise Tolerance Exercise Tolerance: Metabolic Equivalents>4 Pertinent Negatives Pertinent Negatives: No Major Cardiovascular Symptoms or Complaints, No Major Pulmonary Symptoms or Complaints and Other (Stroke 2017 no residual) Cardiac & Pulmonary Exam Cardiac Exam: Normal S1/S2 Heart Sounds Pulmonary Exam: Clear Bilateral Breath Sounds Implantable Cardiac Device Does patient have a Pacemaker or an ICD?: Yes Device Software Project Lead:: [employer] Reason for Placement:: PAFib/flutter/Sick Sinus syndrome Date of Last Device Interrogation:: 01/08/22 Airway Exam Known Difficult Airway: No Mallampati Class: 2 Mouth Opening: Normal (> 3cm) Thyromental Distance: Greater than 3 cm Neck Range of Motion: Full ROM Neck Circumference: Normal Teeth Condition: Normal Dentition ASA Classification ASA Score: ASA 2 Emergency Case?: No NPO Status NPO Status: NPO Clears >2 hours, Solids >8 hours Anesthesia Plan Resuscitation Status: Full Code Anesthesia Technique: General Anesthesia Airway Planned: Natural Airway Monitors Used: Standard Monitors
[2022-01-22 07:01] VITALS: BMI 24.2
--- NOTE | 2022-01-22 07:13 | PDOC.DSDIS_ITS ---
Discharge Plan Disposition Patient Disposition: HOME Condition: Good Discharge Details Reason For Visit: Left carpal tunnel syndrome Attending Provider: Bryant Mendieta Primary Care Provider: Nelly Robelro Home Meds and New Rx's Prescriptions: New acetaminophen 500 mg tablet 500 mg PO Q6H PRN (Reason: pain) Qty: 60 2RF ibuprofen 600 mg tablet 600 mg PO TID PRN (Reason: pain) Qty: 60 0RF Continued aspirin [Adult Low Dose Aspirin] 81 mg tablet,delayed release (DR/EC) 81 mg PO DAILY Qty: 90 3RF vitamin B complex Tablet Extended Release 1 tab PO DAILY cholecalciferol (vitamin D3) 25 mcg (1,000 unit) capsule 25 mcg PO DAILY sulfurzyme 1.8 gm PO BID Rx Instructions: 07/06/14-pt takes 2 tabs daily/pps calcium/magnsium 2 cap PO BID Qty: 30 [place]-3 Plus Vitamin D3 1 EACH capsule 3,900 ea PO DAILY L-Lysine 500 MG capsule 1 cap PO PRN PRN peppermint spirit 30 ML spirit 2 drp PO PRN PRN Discharge Instructions Stand Alone Forms: Anam Marvin Tunnel Release Activity:: Elevate Remove Dressings/Wound Care:: 48 hours Shower/Bathe:: 48 hours Diet:: As Tolerated Discharge Orders Discharge Orders: Discharge Order (Routine); Ordered 01/22/22 Ordered By: Li Smith
[2022-01-22] MEDS: CLINDAMYCIN 900 MG/50 ML BAG 50 MG IVPB (07:19)
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
[2022-01-22] MEDS: Lidocaine 1% Multi-Dose W/EPI 1/100,000 50 ML VIAL (07:45)
[2022-01-22 07:52] VITALS: BP 96/57; PULSE 69; RESP 14; TEMP 36.6; O2SAT 98
[2022-01-22 08:30] VITALS: BP 115/57; PULSE 66; RESP 16; TEMP 36.6; O2SAT 100
--- NOTE | 2022-01-22 09:02 | W.ANESPOSTOP ---
Postoperative Evaluation Date, Time and Location Date Performed: 01/22/22 Time Performed: 08:30 Patient Location: Day Surgery Unit Vital Signs Most Recent Imported Vital Signs: Most Recent Vital Signs Temp Pulse Resp BP Pulse Ox 36.6 C 66 16 115/57 L 100 01/22/22 08:30 01/22/22 08:30 01/22/22 08:30 01/22/22 08:30 01/22/22 08:30 Pain Score Most Recent Pain Score: Most Recent Pain Score Pain Level 0 01/22/22 08:30 Assessment Mental Status: Awake (Alert & Oriented to Patient Baseline) Airway and Respiratory Function: Patent airway with normal (patient baseline) respiratory exam Cardiovascular Function: Hemodynamically Stable Hydration Status: Adequately Hydrated Nausea & Vomiting: No Nausea or Vomiting Pain: Pt. Denies Any Pain Peripheral Nerve Block: Patient did not receive a nerve block
--- NOTE | 2022-01-22 15:53 | W.PM.OP ---
Date of service: 01/22/22 Time of Service: 07:45 Operative Note Operative Note DATE OF PROCEDURE: 01/22/22 PRE-OP DIAGNOSIS: Left Carpal Tunnel Syndrome POST-OP DIAGNOSIS: same PROCEDURE: Left Endoscopic Carpal Tunnel Release SURGEON: Bryant Mendieta ANESTHESIA TYPE: General:No Airway Refer to Anesthesia Record ESTIMATED BLOOD LOSS: 0 PATHOLOGY: none sent TOURNIQUET TIME: 4 COMPLICATIONS: None Patient was transported to: same day Patient's condition: stable Indications: I have seen Luan in clinic for symptoms of carpal tunnel syndrome. The numbness, tingling, and pain limited function. Clinical exam findings with nerve conduction tests confirmed the diagnosis of carpal tunnel syndrome. Nonoperative measures such as bracing, time, activity modifications had been tried but disability and pain persisted. I discussed carpal tunnel release with the patient. I reviewed the risks of the procedure to include, but not limited to, bleeding, infection, pain, stiffness, incomplete release, damage to nerves or vessels, persistent numbness, recurrence. Despite these risks, the patient elected to proceed. Findings: There was tightened carpal tunnel. This was dilated and released successfully with the endoscopic with increased space within the tunnel. The antebrachial fascia was released proximally freeing the median nerve at the wrist. Procedure Description: Luan was greeted in the preoperative holding area where the correct side was identified and marked. The consent was reviewed with the patient and signed. The history and physical was updated. All questions were answered. She was taken back to the operating room. The patient was placed into the supine position on the operating room table with the left arm on an arm board. A nonsterile tourniquet was placed high onto the arm. All bony prominences were well padded. Prophylactic antibiotics in the form of clindamycin were administered. The left arm was then prepped with Chloraprep and draped in a standard fashion with stockinette and extremity drape. A timeout to confirm correct identity, side and site, procedure, allergies, anesthesia, and medical concerns was performed. The surgical site was marked in the volar wrist creases in line with the radial border of the fourth ray. This area was anesthetized with approximately 6cc of 1% Lidocaine. The limb was then exsanguinated with an Esmarch. The skin was incised with a 15 blade, approximately 1cm. The skin only was cut and the deeper tissue was dissected bluntly with a tenotomy scissor, avoiding passing nerve and venous structures. The fascia was penetrated and opened bluntly. A two-prong skin hook was placed under this proximal fascial edge. A series of hamate finders were used to identify and dilate the carpal tunnel. Synovial elevator was used to free synovial attachments to the underside of the transverse carpal ligament. My thumb was kept in the palm to giovanna the distal extent of the carpal tunnel and correctly position the hand. The [employer] endoscope was inserted without difficulty and without resistance. Excellent visualization showed horizontally running fibers of the transverse carpal ligament (TCL). The distal extent of the TCL was visualized and the end of the scope palpated with the thumb. The blade was elevated and withdrawn from distal to proximal. The TCL was split into two flaps. The endoscope was reinserted to confirm complete release and any remnant ligament was incised. The scope was withdrawn and the proximal aspect of the carpal tunnel was grossly inspected and appeared release with the median nerve visible. The antebrachial fascia at the level of the wrist was then freed from the overlying skin and then the underlying median nerve with blunt dissection. This was transected longitudinally for about 3cm proximal to the wrist incision. The wound was then irrigated with easy flow of irrigant distally and proximally. The incision was closed with a single 4-0 Nylon suture. The wound was dressed with Xeroform, Gauze, Kerlix and Froylan. The tourniquet was deflated with the initial dressing and held with some pressure. Blood flow returned easily to all digits with capillary refill less than 2 seconds. The patient tolerated the procedure well and was returned to the Same Day Surgery area in a stable condition suffering no known complication.
== END 2022-01-22 08:45 | disposition home or self-care (01) ==
PROVIDERS: PCP Family Medicine; Visit Provider Student in an Organized Health Care Education/Training Program
PROC: 01N54ZZ Release Median Nerve, Percutaneous Endoscopic Approach (ICD-10-PCS; CPT 29848; principal; 2022-01-22 07:30)
DX: G56.02 Carpal tunnel syndrome, left upper limb (principal); I10 Essential (primary) hypertension; E78.5 Hyperlipidemia, unspecified
CPT/HCPCS: 29848; J2405; J2704

== ENCOUNTER → 2022-01-31 09:31 | Outpatient (BNVA) | payer MEDICARE, SELFPAY | PROVIDERS: PCP Family Medicine; Referring Provider Family Medicine; Visit Provider Student in an Organized Health Care Education/Training Program | DX: Z47.89 Encounter for other orthopedic aftercare (principal); G56.02 Carpal tunnel syndrome, left upper limb; M75.51 Bursitis of right shoulder; M12.811 Other specific arthropathies, not elsewhere classified, right shoulder ==

== ENCOUNTER 2022-03-24 14:08 | Emergency (ER) | payer MEDICARE, SELFPAY ==
[2022-03-24 14:26] VITALS: BP 129/91; PULSE 98; RESP 16; TEMP 36.7; O2SAT 97
--- NOTE | 2022-03-24 14:30 | DI.RAD_ITS ---
Exam(s) XR CHEST 2V PA LATERAL EXAM: XR CHEST 2V PA LATERAL CLINICAL HISTORY: fall, r/o rib fx and pneumo TECHNIQUE: 2D digital imaging was performed. COMPARISON: CR THORACIC SPINE from 08/11/2016 FINDINGS: HEART: Normal size. Pacemaker, leads unchanged in position. Aorta: PULMONARY VASCULATURE: Normal. LUNGS: Clear. PLEURAL SPACE: No pleural effusion or pneumothorax. BONE:U stable midthoracic compression fractures. No visible rib fracture. Hiatal hernia. IMPRESSION: No acute abnormality. DATA REPOSITORY: RADIATION DOSE DELIVERED:
--- NOTE | 2022-03-24 14:30 | DI.RAD_ITS ---
Exam(s) XR WRIST RT COMPLETE EXAM: XR WRIST RT COMPLETE CLINICAL HISTORY: fall, pain in right wrist. TECHNIQUE: 2D digital imaging was performed. Three views. COMPARISON: CR RIGHT WRIST LIMITED from 11/15/2014 CT LEFT LOWER EXTREM WO CONTRAST from 03/30/2016 FINDINGS: Fixation plate is again noted along the volar aspect of the distal radius. There is an acute fractur e seen at the radial styloid as well as the posterior aspect of the distal radius. There is an old n onunited ulnar styloid fractures as well as old fractures at the bases of the 4th and 5th metacarpals . Severe degenerative changes are present at the 1st carpal metacarpal joint. There is marked soft tissue swelling IMPRESSION: Acute mildly displaced intra-articular fracture of the distal radius. DATA REPOSITORY: RADIATION DOSE DELIVERED:
--- NOTE | 2022-03-24 14:30 | DI.RAD_ITS ---
Exam(s) XR SHOULDER RT COMPLETE 2+V EXAM: XR SHOULDER RT COMPLETE 2+V CLINICAL HISTORY: fall, right shoulder pain. TECHNIQUE: 2D digital imaging was performed. Five views. COMPARISON: CR XR SHOULDER RT COMPLETE 2+V from 09/10/2021 FINDINGS: BONES: No acute fracture is present. No bony destructive lesion is seen. JOINTS: No dislocation present. Mild degenerative changes at the AC joint and glenohumeral joint. SOFT TISSUE: Pacemaker noted. IMPRESSION: No acute abnormality. DATA REPOSITORY: RADIATION DOSE DELIVERED:
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
== END 2022-03-24 15:50 | disposition home or self-care (01) ==
PROVIDERS: Emergency Provider Student in an Organized Health Care Education/Training Program; PCP Family Medicine
DX: G89.11 Acute pain due to trauma (principal); M25.531 Pain in right wrist; M25.511 Pain in right shoulder; I10 Essential (primary) hypertension; Z95.0 Presence of cardiac pacemaker; Z79.82 Long term (current) use of aspirin; W01.0XXA Fall on same level from slipping, tripping and stumbling without subsequent striking against object, initial encounter; Y93.01 Activity, walking, marching and hiking
CPT/HCPCS: 99284; 71046; 73030; 73110

== ENCOUNTER 2022-03-31 10:23 | Outpatient (CLI) | payer MEDICARE, SELFPAY ==
--- NOTE | 2022-03-31 10:00 | DI.RAD_ITS ---
Exam(s) XR WRIST RT COMPLETE EXAM: XR WRIST RT COMPLETE CLINICAL HISTORY: eval R wrist, frx follow-up. TECHNIQUE: 2D digital imaging was performed. Three views. COMPARISON: CR XR WRIST RT COMPLETE from 03/24/2022 FINDINGS: BONES: A fixation plate is again noted along the volar aspect of the distal radius for fracture fixat ion. There has been continued healing at the distal radial fracture. Nonunited ulnar styloid fractu re is noted. No acute fracture is present. No bony destructive lesion is seen. JOINTS: The carpal bones are normally aligned. There are severe degenerative changes at the 1st carpa l metacarpal joint. SOFT TISSUE: Mild swelling. IMPRESSION: Interval healing of distal radial fracture. DATA REPOSITORY: RADIATION DOSE DELIVERED:
--- NOTE | 2022-03-31 10:00 | DI.RAD_ITS ---
Exam(s) XR SHOULDER RT COMPLETE 2+V EXAM: XR SHOULDER RT COMPLETE 2+V CLINICAL HISTORY: f/u R shoulde rpain s/p fall. TECHNIQUE: 2D digital imaging was performed. Five views. COMPARISON: CR XR SHOULDER RT COMPLETE 2+V from 03/24/2022 FINDINGS: BONES: No acute fracture is present. No bony destructive lesion is seen. JOINTS: No dislocation present. Glenohumeral joint space is maintained. Mild spurring at the margin of the glenoid. SOFT TISSUE: Pacemaker. IMPRESSION: Mild degenerative changes. No acute abnormality. DATA REPOSITORY: RADIATION DOSE DELIVERED:
--- NOTE | 2022-03-31 10:00 | DI.RAD_ITS ---
Exam(s) XR HAND LT COMPLETE EXAM: XR HAND LT COMPLETE CLINICAL HISTORY: eval for foreign body of left hand. TECHNIQUE: 2D digital imaging was performed. Three views. COMPARISON: CR XR SHOULDER RT COMPLETE 2+V from 03/31/2022 CR XR WRIST RT COMPLETE from 03/31/2022 FINDINGS: BONES: No acute fracture is present. No bony destructive lesion is seen. JOINTS: No dislocation present. Degenerative changes are noted in the interphalangeal joints and 1st carpal metacarpal joint. SOFT TISSUE: Linear foreign body measuring 15 millimeters in length is seen in the soft tissues media l to the base of the proximal phalanx of the thumb. IMPRESSION: Foreign body at base of thumb. DATA REPOSITORY: RADIATION DOSE DELIVERED:
== END 2022-03-31 10:24 | disposition home or self-care (01) ==
LOC: DIORS 10:23
PROVIDERS: PCP Family Medicine; Referring Provider Family Medicine; Visit Provider Student in an Organized Health Care Education/Training Program
DX: S60.552A Superficial foreign body of left hand, initial encounter (principal); S62.101A Fracture of unspecified carpal bone, right wrist, initial encounter for closed fracture; X58.XXXA Exposure to other specified factors, initial encounter; M12.811 Other specific arthropathies, not elsewhere classified, right shoulder; G56.02 Carpal tunnel syndrome, left upper limb
CPT/HCPCS: 99214; 73030; 73110; 73130

== ENCOUNTER 2022-04-01 13:01 | Day surgery (SDC) | payer MEDICARE, SELFPAY ==
[2022-04-01 13:34] VITALS: BP 153/86; PULSE 83; RESP 16; TEMP 36.2; O2SAT 99
--- NOTE | 2022-04-01 14:54 | PDOC.DSDIS_ITS ---
Date of service: 04/01/22 Time of Service: 14:54 Discharge Plan Disposition Patient Disposition: HOME Condition: Good Discharge Details Reason For Visit: Removal foreign body left hand Attending Provider: Bryant Mendieta Primary Care Provider: Nelly Roblero Home Meds and New Rx's Prescriptions: New acetaminophen 500 mg tablet 1,000 mg PO TID Qty: 90 0RF Continued aspirin [Adult Low Dose Aspirin] 81 mg tablet,delayed release (DR/EC) 81 mg PO DAILY Qty: 90 3RF cholecalciferol (vitamin D3) 25 mcg (1,000 unit) capsule 25 mcg PO DAILY sulfurzyme 1.8 gm PO BID Rx Instructions: 07/06/14-pt takes 2 tabs daily/pps calcium/magnsium 2 cap PO BID Qty: 30 Clarence-3 Plus Vitamin D3 1 EACH capsule 3,900 ea PO DAILY L-Lysine 500 MG capsule 1 cap PO PRN PRN peppermint spirit 30 ML spirit 2 drp PO PRN PRN diclofenac sodium [Voltaren Arthritis Pain] 1 % gel 2 g topical QID Qty: 100 0RF Rx Instructions: apply to single elbow, wrist or hand; for hand includes palm/fingers/back of hand Discontinued acetaminophen 500 mg tablet 500 mg PO Q6H PRN (Reason: pain) Qty: 60 2RF Discharge Instructions Additional Instructions: Alfonso's Discharge Instructions Activity: You may resume light activities with the hand and thumb as soon as it is comfortable. Dressing: Your dressing should remain in place for two days. After that it can be removed and a Band-Aid may be used if needed to cover the incision. You may get the incision wet after two days. Medications: - You should take Tylenol for pain control. - You may apply ice over the thumb. Follow-up: 7-10 days Referrals: Bryant Mendieta MD [ [facility] STAFF PHYSICIAN] - Activity:: Activity as Tolerated Remove Dressings/Wound Care:: 48 hours Shower/Bathe:: 48 hours Diet:: As Tolerated DS: Diagnosis Discharge Diagnosis (1) Foreign body of left hand: Status: Acute
[2022-04-01] MEDS: Lidocaine 1% Pres-Free W/EPI 1/200,000 10 ML VIAL (15:12)
[2022-04-01] MEDS: Sodium Bicarbonate 50 MEQ/50 ML VIAL (15:12)
--- NOTE | 2022-04-01 15:15 | DI.RAD_ITS ---
Exam(s) XR HAND LT LIMITED EXAM: XR HAND LT LIMITED CLINICAL HISTORY: FORIEGN BODY TECHNIQUE: 2D and realtime digital imaging was performed. CONTRAST MATERIAL: Refer to procedure report. COMPARISON: CR XR HAND LT COMPLETE from 03/31/2022 FINDINGS: Fluoroscopy was provided for Dr. Mendieta during the performance of a foreign body removal. Please refer to the procedure report for complete details. Ka,r=0.06 mGy IMPRESSION: RADIATION DOSE DELIVERED:
[2022-04-01 15:50] VITALS: BP 144/82; PULSE 88; RESP 16; TEMP 36.4; O2SAT 99
--- NOTE | 2022-04-01 18:33 | ROE_ITS ---
Date of service: 04/01/22 Time of Service: 15:50 Operative Note Operative Note DATE OF PROCEDURE: 04/01/22 PRE-OP DIAGNOSIS: Foreign body of the left thumb webspace POST-OP DIAGNOSIS: same PROCEDURE: Removal of foreign body from left thumb webspace SURGEON: Bryant Mendieta ANESTHESIA TYPE: Local By Surgeon Refer to Anesthesia Record ESTIMATED BLOOD LOSS: 10 PATHOLOGY: none sent COMPLICATIONS: None Patient was transported to: same day Patient's condition: stable Indications: I have seen Luan in clinic for symptoms of a foreign body in the left hand I do to the thumb within the first webspace. This was a piece of plexiglass. She was able remove part of it but there is still was a remnant piece within the left thumb confirmed on x-ray. Given the risk of infection and continued pain, I offered surgical excision. I reviewed the risks of the procedure to include, but not limited to, bleeding, infection, pain, stiffness, incomplete removal, damage to nerves or vessels. Despite these risks, the patient elected to proceed. Findings: There was a linear piece of plexiglass which was seen measuring about three quarters of an inch in length and 2 to 3 mm in width. Procedure Description: Luan was greeted in the preoperative holding area where the correct side was identified and marked. The consent was reviewed with the patient and signed. All questions were answered. She was taken back to the operating room. The patient was placed into the supine position on the operating room table with the left arm on an arm board. All bony prominences were well padded. No prophylactic antibiotics were administered since this was a clean, elective hand surgical case. The left arm was then prepped with Chloraprep and draped in a standard fashion with stockinette and extremity drape. A timeout to confirm correct identity, side and site, procedure, allergies, anesthesia, and medical concerns was performed. The surgical site was marked as a transverse incision over the ulnar aspect of the thumb towards the first webspace. This was confirmed with palpation. This area was then anesthetized with 1% Lidocaine buffered with epinephrine and sodium bicarbonate. The patient tolerated this well and once the anesthetic had setup, the procedure began. The incision was made through skin only, approximately 1cm. The deep tissues were dissected bluntly. The wound was inspected and palpated for the foreign body. Unfortunately, initial inspections did not reveal the piece of plexiglass. Therefore, I utilized fluoroscopy to help identify the piece. With the fluoroscopy involved I was able to identify it and put a hemostat across it and pull it out without difficulty. There was some bleeding during the case which was a gentle ooze from the wound itself. No tourniquet was used. The piece seem to match the previous measurements from x- ray and repeat x-ray showed no retained foreign body. The wound was then irrigated and the skin was closed with a 4-0 Nylon. This was dressed with gauze and a Conform dressing. The patient tolerated the procedure well and was returned to the Same Day Surgery area in a stable condition suffering no known complication.
== END 2022-04-01 16:20 | disposition home or self-care (01) ==
PROVIDERS: PCP Family Medicine; Visit Provider Student in an Organized Health Care Education/Training Program
PROC: (CPT 26160; principal; 2022-04-01 15:15)
DX: S60.552A Superficial foreign body of left hand, initial encounter (principal); X58.XXXA Exposure to other specified factors, initial encounter
CPT/HCPCS: 10120; 73120

== ENCOUNTER 2022-04-03 20:47 | Outpatient (REF) | payer MEDICARE, SELFPAY ==
[2022-04-03 21:06] LABS: Bilirubin Negative (Negative); Blood Negative (Negative); Clarity Sl Cloudy (Clear); Glucose Negative (Negative); Ketones Negative (Negative); Leukocyte Esterase Moderate (Negative); Nitrite Negative (Negative); Urobilinogen 0.2 EU/dL (Up TO 0.2)
[2022-04-03 21:15] LABS: Bacteria Moderate HPF (Negative); C & S Indicated? Yes; Casts Negative LPF (Negative); Crystals Negative HPF (Negative); Epithelial Cells Few HPF (Negative); Mucus Negative (Negative); RBC Negative HPF (0-2); WBC >50 HPF (0-5)
== END 2022-04-03 20:48 | disposition home or self-care (01) ==
LOC: LBN 20:47
PROVIDERS: PCP Family Medicine; Visit Provider Nurse Practitioner Family
DX: R35.0 Frequency of micturition (principal)
CPT/HCPCS: 87077; 81003; 81015; 87086; 87186

== ENCOUNTER → 2022-04-14 14:06 | Outpatient (BNVA) | payer MEDICARE, SELFPAY | PROVIDERS: PCP Family Medicine; Referring Provider Family Medicine; Visit Provider Student in an Organized Health Care Education/Training Program | DX: S60.552D Superficial foreign body of left hand, subsequent encounter (principal); S62.101D Fracture of unspecified carpal bone, right wrist, subsequent encounter for fracture with routine healing; X58.XXXD Exposure to other specified factors, subsequent encounter ==

== ENCOUNTER → 2022-06-02 13:37 | Outpatient (BNVA) | payer MEDICARE, SELFPAY | PROVIDERS: PCP Family Medicine; Referring Provider Family Medicine; Visit Provider Student in an Organized Health Care Education/Training Program | DX: X58.XXXA Exposure to other specified factors, initial encounter (principal); S62.101A Fracture of unspecified carpal bone, right wrist, initial encounter for closed fracture | CPT/HCPCS: 99212 ==

== ENCOUNTER 2022-09-26 02:26 | Outpatient (CLI) | payer MEDICARE, SELFPAY ==
[2022-09-26 16:14] LABS: Abs Immature Grans 0.02 10^3/uL (0.0-0.06); Absolute Basophil Count 0.06 10^3/uL (0.0-0.2); Absolute Lymphocyte Count 2.65 10^3/uL (1.2-3.4); Absolute Monocyte Count 0.56 10^3/uL (0.1-0.8); Absolute Neutrophil Count 3.91 10^3/uL (1.2-6.7); Basophils % 0.8; Eosinophils % 2.7; HCT 39.7 % (36.0-46.0); HGB 13.6 g/dL (11.2-15.7); Immature Grans % 0.3; Lymphocytes % 35.8; MCH 31.7 pg (27.0-33.0); MCHC 34.3 % (32.0-36.0); MCV 93 fL (80-95); Monocytes % 7.6; Neutrophils % 52.8; Platelet Count 250 10^3/uL (130-400); RBC 4.29 10^6/uL (3.93-5.22); RDW 11.9 % (11.7-14.6); RDW-SD 40.5 fL
[2022-09-26 16:45] LABS: ALT 34 U/L (14-59); AST 24 U/L (15-37); Albumin 3.8 g/dL (3.4-5.0); Alkaline Phosphatase 83 U/L (46-116); Anion Gap 6.9 mmol/L (3-11); BUN 15 mg/dL (7-18); Bilirubin, Total 0.6 mg/dL (0.2-1.0); CO2 26.1 mmol/L (21.0-32.0); CREATININE 0.7 mg/dL (0.55-1.02); Calcium 9.7 mg/dL (8.5-10.1); Chloride 104 mmol/L (98-107); Estimated GFR 89.58 (mL/min/1.73m2); Glucose 92 mg/dL (74-106); Potassium 4.6 mmol/L (3.5-5.1); Sodium 137 mmol/L (136-145); TSH (W/Ref FT4) 0.82 uIU/mL (0.36-3.74); Total Protein 7.2 g/dL (6.4-8.2)
== END 2022-09-26 02:27 | disposition home or self-care (01) ==
LOC: LBO 02:27
PROVIDERS: PCP Family Medicine; Visit Provider Family Medicine
DX: R53.83 Other fatigue (principal); I10 Essential (primary) hypertension; F41.8 Other specified anxiety disorders
CPT/HCPCS: 36415; 80053; 84443; 85025

== ENCOUNTER 2024-07-15 15:23 | Outpatient (CLI) | payer MEDICARE, OTHER, SELFPAY ==
--- NOTE | 2024-07-15 10:00 | DI.RAD_ITS ---
Exam(s) XR LUMBAR SPINE COMPLETE EXAM: XR LUMBAR SPINE COMPLETE CLINICAL HISTORY: low back pain midline G89.11 M554.50 M85.88 Bone density and structure. TECHNIQUE: 2D digital imaging was performed. Five views. COMPARISON: CT RENAL COLIC WO CONTRAST from 07/10/2016 CR XR DEXA BONE DENSITY W/WO SERGEY from 11/03/2019 FINDINGS: Exam is limited by overlying bowel gas. BONES: No fracture or destructive lesion. Vertebral body heights are maintained. The bones appear osteopenic. Facet degenerative changes greatest at L4-5. DISKS: Intervertebral multilevel disc space narrowing greater on the left side. Prominent endpla te osteophytes on the left. ALIGNMENT: Moderate dextroscoliosis. SOFT TISSUE: Normal. IMPRESSION: Degenerative changes and scoliosis. DATA REPOSITORY: RADIATION DOSE DELIVERED:
== END 2024-07-15 15:43 ==
PROVIDERS: PCP Family Medicine; Visit Provider Family Medicine
DX: G89.11 Acute pain due to trauma (principal); M54.50 Low back pain, unspecified; M85.88 Other specified disorders of bone density and structure, other site
CPT/HCPCS: 72110

== ENCOUNTER 2024-07-15 22:49 | Outpatient (REF) | payer MEDICARE, SELFPAY | END 2024-07-15 22:50 | disposition home or self-care (01) | LOC: LBN 22:49 | PROVIDERS: PCP Family Medicine; Visit Provider Family Medicine | DX: N39.0 Urinary tract infection, site not specified (principal); G89.11 Acute pain due to trauma; M54.50 Low back pain, unspecified; M85.88 Other specified disorders of bone density and structure, other site; B96.29 Other Escherichia coli [E. coli] as the cause of diseases classified elsewhere | CPT/HCPCS: 87077; 87086; 87186 ==